=== PATIENT | female | born 1995 | race African-American/Black ===

== ENCOUNTER → 2017-09-24 | Outpatient (CLI) | payer OTHER ==
[2017-09-24 16:33] LABS: HEMATOCRIT 41.9 % (36.0-47.0); HEMOGLOBIN 14.4 g/dl (12.0-16.0); MEAN CORPUSCULAR HEMOGLOBIN 30.6 pg (27.0-33.0); MEAN CORPUSCULAR HGB CONC 34.4 g/dl (32.0-36.5); MEAN CORPUSCULAR VOLUME 89.1 fl (80.0-96.0); PLATELET COUNT, AUTOMATED 161 10^3/uL (150-450); RED CELL DISTRIBUTION WIDTH 11.3 % (11.5-14.5); WHITE BLOOD COUNT 5.4 10^3/uL (4.0-10.0)
[2017-09-24 16:39] LABS: ADD MANUAL DIFFER YES; DIFF SLIDE NUMBER 223; POSITIVE MORPH POS FLAG
[2017-09-24 17:04] LABS: ATYPICAL LYMPH 7 % (0-5); BANDS 4 % (< 11); LYMPHOCYTES 27 % (16-52); MONOCYTES 4 % (0-8); NEUTROPHILS 58 % (35-75)
[2017-09-24 17:05] LABS: PLATELET ESTIMATE NORMAL (NORMAL)
[2017-09-24 19:15] LABS: ANION GAP 6 MEQ/L (8-16); AST/SGOT 21 U/L (7-37); BLOOD UREA NITROGEN 8 MG/DL (7-18); CALCIUM LEVEL 8.4 MG/DL (8.5-10.1); CARBON DIOXIDE LEVEL 29 MEQ/L (21-32); CHLORIDE LEVEL 102 MEQ/L (98-107); CREATININE FOR GFR 0.72 MG/DL (0.55-1.30); GLOMERULAR FILTRATION RATE > 60.0 (>60); GLUCOSE, FASTING 100 MG/DL (70-100); POTASSIUM SERUM 3.4 MEQ/L (3.5-5.1); SODIUM LEVEL 137 MEQ/L (136-145)
[2017-09-24 19:16] LABS: ALBUMIN/GLOBULIN RATIO 1.14 (1.00-1.93); ALKALINE PHOSPHATASE 69 U/L (45-117); ALT/SGPT 15 U/L (12-78); BILIRUBIN,TOTAL 0.4 MG/DL (0.2-1.0); TOTAL PROTEIN 7.5 GM/DL (6.4-8.2)
== END ==
LOC: M WUC 12:09
DX: R10.32 Left lower quadrant pain (principal)

== ENCOUNTER 2018-12-21 20:07 | Outpatient (CLI) | payer OTHER ==
[~2018-12-21] VITALS: Ht 167.6 cm; Wt 74.3 kg
[2018-12-21 21:20] LABS: HEMATOCRIT 31.1 % (36.0-47.0); HEMOGLOBIN 10.4 g/dl (12.0-15.5); MEAN CORPUSCULAR HGB CONC 33.4 g/dl (32.0-36.5); MEAN CORPUSCULAR VOLUME 98.7 fl (80.0-96.0); PLATELET COUNT, AUTOMATED 231 10^3/uL (150-450); RED BLOOD COUNT 3.15 10^6/uL (4.00-5.40)
== END 2018-12-21 22:15 | disposition home or self-care (01) ==
LOC: M LDO 20:07
PROVIDERS: ATTEND Obstetrics & Gynecology
DX: O26.893 Other specified pregnancy related conditions, third trimester (principal); R42 Dizziness and giddiness; R10.2 Pelvic and perineal pain; Z3A.34 34 weeks gestation of pregnancy
CPT/HCPCS: 36415; 59025; 85027; G0378; G0463

== ENCOUNTER 2019-01-28 17:14 | Outpatient (CLI) | payer OTHER ==
[~2019-01-28] VITALS: Ht 167.6 cm; Wt 74.5 kg
[2019-01-28 17:43] VITALS: BP 109/70
--- NOTE | 2019-01-28 19:51 | HPE ---
DATE OF ADMISSION: 01/28/2019 This is a 23-year-old 2, para 1, last menstrual period (LMP) 04/27/2018, estimated date of confinement (EDC) 02/01/2019, at 39+ weeks of gestation, has a history of not feeling well, unable to eat solid foods, fluids are okay, and having some dizziness. No contractions or vaginal loss. PAST HISTORY: Spontaneous vaginal delivery of a female, 5 years ago at term. No issues. LABORATORY DATA: O positive, HIV negative, hepatitis negative, rapid plasma reagin (RPR) negative, rubella immune. Varicella immune. Pap normal. Urine negative. Gonorrhea and chlamydia are negative. One hour glucose 121. Group B Streptococcus (GBS) is negative. On examination, does not appear in any acute distress. Category one strip. No contractions, good accelerations, moderate variability, baseline was normal. She has a symphysis fundus height of 30, vertex. Pelvic examination: 2 cm posterior, 50% effaced, -2 station, similar to what she was a week ago when checked by her provider. Blood pressure is 109/70, respirations 18, pulse is 78, temperature is 98.7. Urine is 10/10, pH of 7 and negative. Fingerstick: Her blood sugar is 78. We reviewed the reason for her dizziness and not feeling well is because she has not eaten all day. She has been kept well-hydrated, but needs to try and attempt to eat something. Category one strip, good reactive, no contractions. No other risk factors noted. She was given precautions. She was discharged to follow up with her appointment 02/10/2019.
== END 2019-01-28 18:50 | disposition home or self-care (01) ==
LOC: M LDO 17:14
PROVIDERS: ATTEND Obstetrics & Gynecology
DX: O26.893 Other specified pregnancy related conditions, third trimester (principal); R42 Dizziness and giddiness; R63.8 Other symptoms and signs concerning food and fluid intake; Z3A.39 39 weeks gestation of pregnancy
CPT/HCPCS: 59025; G0378; G0463

== ENCOUNTER 2019-02-07 15:35 | Inpatient (IN) | payer OTHER ==
[2019-02-07] VITALS (21 sets, daily range): BP systolic 94–129; BP diastolic 56–85
[~2019-02-07] VITALS: Ht 167.6 cm; Wt 74.4 kg
[2019-02-07] MEDS ORDERED: PRENTAB9 PO (15:47)
[2019-02-07] MEDS ORDERED: VALT500T PO (15:47)
--- NOTE | 2019-02-07 16:21 | HPEPDOC ---
Obstetrical History & Physical General Date of Admission Feb 07, 2019 at 15:35 History of Present Illness 23yo at 40+6wks presents to LND for IOL d/t late term . notable for hx of HSV, currently on Valtrex Prophylaxis; otherwise uncomplicated. Chief Complaint: Induction of labor Information Provided By: Patient Age: 23 : 2 Term: 1 Pre-term: 0 Abortions: 0 Livin Care Care: Good Care Dating Final EDC: Feb 01, 2019 Final EDC for Daily Update: Feb 01, 2019 Final EDC by: LMP LMP: Apr 27, 2018 Antepartum Course Diagnos(e)s Med Hx: HSV on Valtrex; anemia on iron supplementation Height (inches): 66 Pre- weight (lbs.): 135 Admission Weight (lbs.): 167 Change in Weight (lbs.): 32 Past Medical History Past Obstetrical History : Past Obstetrical History: Multigravida (Term in 2013, pelvis tested to 9lbs 3oz) Type of Delivery: Spontaneous Vaginal Del. Sex of Infant: Male BUSINESS SUPPORT ASSOCIATE History: Herpes simplex virus(HSV) Past Medical History Surgical History: Gallbladder Family History Significant Family History: Diabetes (Mother and Brother T2DM) Social History Marital Status: Family situation: Spouse/partner home Psychosocial History: Anxiety * Smoker: non-smoker Alcohol: Denies Drugs: denies Abuse Violence Screening Have you been hit/kicked/slapp: No Have you been sexually assault: No Imunizations Tdap status: current Allergies Coded Allergies: latex (Verified Allergy, Mild, BREAK OUT IN RASH, 01/28/19) Medications Scheduled No.137/Iron/Folic Acd ( Vitamin Tablet) 1 Each Tablet, 1 TAB PO DAILY Valacyclovir HCl (Valtrex) 500 Mg Tablet, 1 TAB PO DAILY Physical Examination Physical Examination GENERAL: Alert and oriented times three. ABDOMEN: Gravid and non-tender to touch. FETUS: Is vertex (VTX) by sterile vaginal examination (SVE) HEART RATE: Regular rate and rhythm. LUNGS: Clear to auscultation (CTA). EXTREMITIES: No edema. Pertinent Laboratoy Data Blood Type: O+ RBC Antibody Screen: Negative HIV: Negative Hepatitis B: Negative Rapid Plasma Reagin: Nonreactive Rubella: Immune Varicella: Immune Chlamydia/Gonorrhea: Negative Group B Streptococcus: Negative Quad Screen Test: Declined Glucose Tolerance Test: 121 Anatomy Ultrasound Ultrasound Date: Sep 22, 2018 Placenta Location: Posterior Normal Anatomy: Yes Placenta Previa: No Steroid Therapy Steroid Therapy: No Vaginal Examination Dilation: 3 cm Effacement: 80% Station: -2 Cervical Consistency: Soft Cervical Position: Posterior Presentation: Cephalic presentation Position: Vertex (occiput) Assessment Heart Rate (FHR): 130 Variability: Moderate Accelerations: Positive Decelerations: None Tocometer Contractions: Yes Frequency: regular Strength: palpated as mild, resting tone palp/soft Assessment/Plan Assessment A: Ms. Fritz is a 23yo at 40+6wks by LMP admitted for IOL d/t post- dates. Pt is GBS Negative, HIV negative, HSV hx on Valtrex. SVE: 3/80/-2, Category I FHT, CTX present and regular. Plan Admit to LND, Verbal consent obtained. IV start, admission labs collected EFM x2 Counseled on pitocin IOL; Start pitocin per protocol LR for IV fluids Clear liquid diet Anticipate Consult OB remote encoding operations supervisor if indicated LINDA Pringle CNM Feb 07, 2019 16:10
[2019-02-07] MEDS ORDERED: OXYTOCIN DRIP 30 UNITS in APPROPRIATE DILUENT 1 EA IV SCH ×2 (16:45→22:54)
[2019-02-07 17:13] LABS: HEMATOCRIT 32.4 % (36.0-47.0); MEAN CORPUSCULAR VOLUME 97.3 fl (80.0-96.0); PLATELET COUNT, AUTOMATED 230 10^3/uL (150-450); RED BLOOD COUNT 3.33 10^6/uL (4.00-5.40); WHITE BLOOD COUNT 6.4 10^3/uL (4.0-10.0)
[2019-02-07] MEDS ORDERED: LR 1,000 ML IV SCH (17:15)
[2019-02-07] MEDS ORDERED: FENTANYL 2MCG/ML ROPIVACAINE 0.2% IN 0.9% NACL 100ML IVBAG As Ordered ONE (19:54)
[2019-02-07] MEDS ORDERED: EPIDURAL/PCA KEYS XX PRN (20:45)
[2019-02-07] MEDS ORDERED: LACTATED RINGER'S 1000 ML IV PRN (20:45)
[2019-02-07] MEDS ORDERED: diphenhydrAMINE INJ 50MG/ML VIAL (J1200) IV PRN (20:45)
[2019-02-07] MEDS ORDERED: REFRIGERATOR IV KEYS XX PRN (20:45)
[2019-02-07] MEDS ORDERED: NALOXONE INJ 0.4 MG/1 ML VIAL (J2310) IV PRN (20:45)
[2019-02-07] MEDS ORDERED: ePHEDrine SULFATE 25 MG/5 ML(5MG/ML) SYRINGE IV PRN (20:45)
[2019-02-07] MEDS ORDERED: ONDANSETRON 4MG/2ML VIAL (J2405) IV PRN (20:45)
[2019-02-07] MEDS ORDERED: EPIDURAL COMMENT XX SCH (20:45)
[2019-02-07] MEDS ORDERED: FENTANYL/ROPIVACAINE/NACL BAG 100 ML EPIDURAL SCH (20:45)
--- NOTE | 2019-02-07 22:54 | DNPDOC ---
[facility] Delivery Note Delivery Note DATE OF DELIVERY: [February 07, 2019] PREDELIVERY DIAGNOSIS: [40]-[1]/7 weeks' gestation and labor. POST DELIVERY DIAGNOSIS: Delivered. PROCEDURE: [Spontaneous vaginal deliver). VINEYARD SUPERVISOR: [Beck/ Baljeet Pool] ANESTHESIA: [epidural]. ESTIMATED BLOOD LOSS: [300] mL. FINDINGS: pound ounce infant, Score [9]/9, nuchal cord times [1]. DELIVERY SUMMARY: Patient is a 23-year-old [2] now para [2]-[0[0]-[2] who was admitted to labor and delivery a 3 cm . ;atemt/prodromal labor. course unremarkabe, GBS neg, blood type 0+. With pitocin au gmentation, epidural pt progressed to fully. Delivered over an intact perineum, nuchal cord x 1 reduced prior to delivery. BRANDON. male infant, Apgars 9/9, wt pending EBL 300cc sponge count 5/5 specs -cord blood for type and antibody screen complications none PEGGY WALL MD Feb 07, 2019 22:54
[2019-02-07] MEDS ORDERED: ACETAMINOPHEN 500 MG TAB PO PRN (23:00)
[2019-02-07] MEDS ORDERED: DIBUCAINE 1% OINTMENT 30GM TOP PRN (23:00)
[2019-02-07] MEDS ORDERED: RHOGAM 300 MCG (1500 IU) INJ (J2790) IM SCH (23:00)
[2019-02-07] MEDS ORDERED: DOCUSATE SODIUM 100 MG CAP PO PRN (23:00)
[2019-02-07] MEDS ORDERED: MEASLES,MUMPS,RUBELLA VACCINE INJ (MMR-II) (90707) SC SCH (23:00)
[2019-02-07] MEDS ORDERED: IBUPROFEN 600 MG TAB PO PRN (23:00)
[2019-02-07] MEDS ORDERED: ACETAMINOPHEN TAB 650MG DOSE (2X325MG) PO PRN (23:00)
[2019-02-08] MEDS: IBUPROFEN 800 MG TAB PO PRN ×3 (01:11→22:21)
[2019-02-08 01:25] VITALS: BP 111/72
[2019-02-08 06:00] VITALS: BP 134/80
--- NOTE | 2019-02-08 07:55 | IPNPDOC ---
Progress Note Date of Service: Feb 08, 2019 Progress Note 23 yo G2 now P2 PPD#1 s/p uncomplicated last night at ~2230 after being admitted for an IOL that same day. She is currently recovering on the pimentel. Yesica reports feeling well this AM and has no complaints. She is ambulating, voiding, tolerating a regular diet, has minimal pain, and minimal lochia. Vitals - VSS, normotensive, afebrile, non tachycardic General - AAOX3, sitting up in bed, NAD, pleasant and conversant Abdomen - Fundus firm at U-2. No fundal tenderness. Extremities - No edema UO - appropriate. Ms. Fritz is doing well and is making an appropriate recovery. Discharge medications ordered at [facility]. Likely discharge home tomorrow. Continue routine care. All questions answered. Kaylene Valdez DO VS, I&O, 24H, Fishbone Vital Signs/I&O Vital Signs Date Time Temp Pulse Resp B/P (MAP) Pulse Ox O2 Delivery O2 Flow Rate FiO2 02/08/19 06:00 97.9 71 16 134/80 (98) 98 I&O- Last 24 Hours up to 6 AM 02/08/19 06:00 Intake Total 765 ml Output Total 1650 ml Balance -885 ml Laboratory Data 24H LABS Laboratory Tests 2 02/07/19 16:14: Serology Scanned Report Hepatitis B Testing 02/07/19 17:02: Nucleated Red Blood Cells % (auto) 0.0 CBC/BMP Laboratory Tests 02/07/19 17:02 Red Blood Count 3.33 L, Mean Corpuscular Volume 97.3 H, Mean Corpuscular Hemoglobin 33.0, Mean Corpuscular Hemoglobin Concent 34.0, Red Cell Distribution Width 12.9 KAYLENE VALDEZ DO Feb 08, 2019 07:55
[2019-02-08] MEDS ORDERED: PRENATAL VITAMINS CHEWABLE TABLET PO SCH (09:00)
[2019-02-09 06:57] VITALS: BP 114/66
--- NOTE | 2019-02-09 08:48 | NUR ---
[facility] OB Discharge Summary : 2 Parity: now 2001 VDRL: NR RH: POS GBS: NEG Labor-term at 40+6 weeks Delivery 07 February, uncomplicated attended by Dr. Solares Anesthesia: BRIAN Episiotomy: none AP/PP Course: routine, uncomplicated Admission Dx: Term labor Discharge Dx: Delivered Condition at discharge: Stable Discharge instructions: Dc home and/or boarder status pending disposition of NBN Activity: no heavy lifting Diet: regular Medications: as ordered at [facility] outpatient pharmacy F/U: [facility] Outpatient OBGYN clinic in 6-8 weeks
--- NOTE | 2019-02-09 08:53 | NUR ---
Progress Note Date of Service: Feb 09, 2019 Yesica is a 23 y/o G2 now P2 s/p uncomplicated on [address] Solares after being admitted for active labor. She is currently recovering on the pimentel. Yesica reports feeling well this AM and has no complaints. She is ambulating, voiding, tolerating a regular diet, has minimal pain, and minimal lochia. She is nursing and formula feeding. Vitals - VSS, normotensive, afebrile, non tachycardic General - AAOX3, sitting up in bed, NAD, pleasant and conversant Abdomen - Fundus firm at U-2. No fundal tenderness. Lochia- scant rubra lochia Extremities - No edema UO - appropriate. Ms. Fritz is doing well and is making an appropriate recovery. Discharge medications ordered at [facility]. DC to home and/or to boarder status this morning pending disposition of NBN. Reviewed warning signs and return precautions and advised patient to schedule 6-8 week PP exam. All questions answered.
[2019-02-09] MEDS ORDERED: ACET1TAB55 PO (08:55)
[2019-02-09] MEDS ORDERED: IBUP-1022 PO (08:55)
== END 2019-02-09 10:30 | disposition home or self-care (01) | DRG 807 ==
LOC: M LDI 15:35 → M OBS 02-08 01:19
PROVIDERS: ADMIT Obstetrics & Gynecology; ATTEND Obstetrics & Gynecology
PROC: 10E0XZZ Delivery of Products of Conception, External Approach (ICD-10-PCS; principal; 2019-02-07)
PROC: 3E033VJ Introduction of Other Hormone into Peripheral Vein, Percutaneous Approach (ICD-10-PCS; 2019-02-07)
DX: O48.0 Post-term pregnancy (principal); Z37.0 Single live birth; O69.81X0 Labor and delivery complicated by cord around neck, without compression, not applicable or unspecified; Z3A.40 40 weeks gestation of pregnancy; O99.02 Anemia complicating childbirth; D64.9 Anemia, unspecified

== ENCOUNTER → 2020-01-06 | Outpatient (REF) | payer OTHER ==
[~2020-01-06] MED LIST: ACET1TAB55 PO; IBUP-1022 PO; PRENTAB9 PO; VALT500T PO
== END ==
LOC: M SFHCLERA 12:59
PROVIDERS: ATTEND Nurse Practitioner Family
DX: N89.8 Other specified noninflammatory disorders of vagina (principal)

== ENCOUNTER → 2020-01-23 | Outpatient (REF) | payer OTHER | LOC: M SFHCLERA 11:10 | PROVIDERS: ATTEND Nurse Practitioner Family | DX: R35.0 Frequency of micturition (principal) ==

== ENCOUNTER → 2020-08-02 | Outpatient (CLI) | payer OTHER ==
--- NOTE | 2020-08-04 15:49 | REP ---
INDICATION: DATING/VIABILITY. COMPARISON: None. TECHNIQUE: Sonographic evaluation gravid uterus performed. FINDINGS: There is a single living intrauterine gestation. The estimated station all age is 7 weeks 1 day based on a crown-rump length of 10 mm. EDC 03/20/2021. heart rate 147 beats per minute. Cervix measures 3.5 cm in length. There is a small subchorionic hemorrhage measuring 1.8 x 1.2 x 0.9 cm. IMPRESSION: Intrauterine gestation with estimated gestational age 7 weeks 1 day. Small subchorionic hemorrhage. <Electronically signed by Schuyler Moreno > 08/04/20 [id number]
== END ==
LOC: M PLAIMG 13:05
PROVIDERS: ATTEND Physician Assistant
DX: Z32.01 Encounter for pregnancy test, result positive (principal); Z36.87 Encounter for antenatal screening for uncertain dates; Z3A.01 Less than 8 weeks gestation of pregnancy